=== PATIENT | male | born 1975 | race Caucasian/White ===

== ENCOUNTER → 2016-09-24 | Outpatient (CLI) | payer OTHER | LOC: EMI 09-10 09:30 → MRI 09-21 09:00 | DX: K29.00 Acute gastritis without bleeding (principal); B16.9 Acute hepatitis B without delta-agent and without hepatic coma; K83.1 Obstruction of bile duct; K82.9 Disease of gallbladder, unspecified; R16.1 Splenomegaly, not elsewhere classified; Z87.19 Personal history of other diseases of the digestive system | CPT/HCPCS: 74181 ==